=== PATIENT | female | born 2000 | race Two or more races ===

== ENCOUNTER 2018-02-25 08:00 | Emergency (ER) | payer OTHER ==
[~2018-02-25] VITALS: Ht 154.9 cm; Wt 83.9 kg
== END 2018-02-25 11:25 | disposition home or self-care (01) ==
LOC: ER 08:00
DX: L50.8 Other urticaria (principal)

== ENCOUNTER 2022-04-03 10:33 | Emergency (ER) | payer OTHER ==
[~2022-04-03] VITALS: Ht 157.5 cm; Wt 96.2 kg
[2022-04-03] MEDS ORDERED: AMOX-CLAV 875-1 EACH PO (12:54)
[2022-04-03] MEDS ORDERED: KETO10TA2 PO (12:54)
== END 2022-04-03 12:55 | disposition home or self-care (01) ==
LOC: ER 10:33
DX: H00.14 Chalazion left upper eyelid (principal); Z20.822 Contact with and (suspected) exposure to COVID-19

== ENCOUNTER 2022-09-28 05:52 | Emergency (ER) | payer OTHER ==
[~2022-09-28] VITALS: Ht 157.5 cm; Wt 90.7 kg
[~2022-09-28 05:52] MED LIST: AMOX-CLAV 875-1 EACH PO; KETO10TA2 PO
[2022-09-28] MEDS ORDERED: TUSSI PRES-B L480 ML PO (09:25)
[2022-09-28] MEDS ORDERED: OSEL75CA PO (09:25)
== END 2022-09-28 09:40 | disposition home or self-care (01) ==
LOC: ER 05:52
DX: U07.1 COVID-19 (principal); J10.1 Influenza due to other identified influenza virus with other respiratory manifestations

== ENCOUNTER 2023-02-25 16:20 | Emergency (ER) | payer OTHER ==
[~2023-02-25] VITALS: Ht 157.5 cm; Wt 90.7 kg
[~2023-02-25 16:20] MED LIST changes: +OSEL75CA PO; +TUSSI PRES-B L480 ML PO
== END 2023-02-25 20:03 | disposition home or self-care (01) ==
LOC: ER 16:20
DX: J06.9 Acute upper respiratory infection, unspecified (principal); R53.81 Other malaise; Z20.822 Contact with and (suspected) exposure to COVID-19

== ENCOUNTER 2023-08-15 20:05 | Emergency (ER) | payer OTHER ==
[~2023-08-15] VITALS: Ht 157.5 cm; Wt 90.7 kg
== END 2023-08-16 01:36 | disposition home or self-care (01) ==
LOC: ER 20:06
DX: J02.9 Acute pharyngitis, unspecified (principal); J32.9 Chronic sinusitis, unspecified

== ENCOUNTER 2023-08-16 13:51 | Emergency (ER) | payer OTHER ==
[~2023-08-16] VITALS: Ht 157.5 cm; Wt 93.4 kg
== END 2023-08-16 17:01 | disposition home or self-care (01) ==
LOC: ER 13:51
DX: J10.1 Influenza due to other identified influenza virus with other respiratory manifestations (principal)